=== PATIENT | male | born 1995 | race American Indian/Alaskan Native ===

== ENCOUNTER 2020-02-18 22:01 | Emergency (ER) | payer OTHER ==
[2020-02-18] MEDS ORDERED: Sodium Chloride 0.9% 1,000 ML IV ONE (22:34)
[2020-02-18] MEDS ORDERED: Ondansetron 4 MG/2 ML SDV IVPUSH ONE (22:34)
--- NOTE | 2020-02-18 22:40 | EDM.PDOC ---
ED HPI GENERAL MEDICAL PROBLEM - General Chief Complaint: Abdominal Pain Stated Complaint: CONSTANTLY THROWING UP SINCE FATHERS DAY PER PT Time Seen by Provider: 02/18/20 22:30 Source of Information: Reports: Patient History Limitations: Reports: No Limitations - History of Present Illness INITIAL COMMENTS - FREE TEXT/NARRATIVE: This 24 yo male patient reports to the ED with left upper abdominal pain. The patient reports he has not been able to eat due to nausea/vomiting. The patient reports he has been attempting to drink fluids. The patient reports he has not had a bowel movement for 2 days. The patient denies any difficulties urinating. The patient reports no medical history and no previous abdominal surgeries. Onset: Today Duration: Constant Location: Reports: Abdomen (LUQ) Quality: Reports: Ache, Sharp Severity: Severe Improves with: Reports: None Worsens with: Reports: None Context: Reports: Other Associated Symptoms: Reports: No Other Symptoms Left Upper Abdomen Pain Score (Numeric/FACES): 7 - Related Data Allergies Allergy/AdvReac Type Severity Reaction Status Date / Time No Known Allergies Allergy Verified 02/18/20 22:26 Home Meds: Home Meds . [No Known Home Meds] 02/18/20 [History] ED ROS GENERAL - Review of Systems Review Of Systems: Comprehensive ROS is negative, except as noted in HPI. ED EXAM, GI/ABD - Physical Exam Exam: See Below Exam Limited By: No Limitations General Appearance: Alert, WD/WN, Moderate Distress Eyes: Bilateral: Normal Appearance, EOMI Ears: Normal External Exam, Normal Canal, Hearing Grossly Normal, Normal TMs Nose: Normal Inspection, Normal Mucosa, No Blood Throat/Mouth: Normal Inspection, Normal Lips, Normal Teeth, Normal Gums, Normal Oropharynx, Normal Voice, No Airway Compromise Head: Atraumatic, Normocephalic Neck: Normal Inspection, Supple, Non-Tender, Full Range of Motion Respiratory/Chest: No Respiratory Distress, Lungs Clear, Normal Breath Sounds, No Accessory Muscle Use, Chest Non-Tender Cardiovascular: No Edema, No Gallop, No JVD, No Murmur, No Rub, Tachycardia GI/Abdominal Exam: Tender (LUQ) (Male) Exam: Deferred Rectal (Males) Exam: Deferred Back Exam: Normal Inspection, Full Range of Motion, NT Extremities: Normal Inspection, Normal Range of Motion, Non-Tender, Normal Capillary Refill, No Pedal Edema Neurological: Alert, Oriented, CN II-XII Intact, Normal Cognition, Normal Gait, Normal Reflexes, No Motor/Sensory Deficits Psychiatric: Normal Affect, Normal Mood Skin Exam: Warm, Dry, Intact, Normal Color, No Rash Lymphatic: No Adenopathy Course - Vital Signs Last Recorded V/S: Last Vital Signs Temp 36.3 C 02/18/20 22:05 Pulse 150 H 02/18/20 22:05 Resp 20 02/18/20 22:05 BP 141/82 H 02/18/20 22:05 Pulse Ox 97 02/18/20 22:05 - Orders/Labs/Meds Orders: Active Orders 24 hr Category Date Time Status EKG Documentation Completion [RC] STAT Care 02/18/20 22:18 Active CULTURE BLOOD [BC] Stat Lab 02/18/20 22:38 Received CULTURE BLOOD [BC] Stat Lab 02/18/20 23:20 Received DRUG SCREEN URINE BIORAD [URCHEM] Stat Lab 02/18/20 22:18 Ordered UA RFX MISHEL AND CULT IF INDIC [URIN] Urgent Lab 02/18/20 22:18 Ordered Lactated Ringers [Ringers, Lactated] 1,000 ml Med 02/19/20 00:30 Ordered IV ASDIRECTED Medication Orders Hydromorphone HCl (Dilaudid) 1 mg IVPUSH ONETIME ONE Stop: 02/19/20 00:28 Labs: Laboratory Tests 02/18/20 02/18/20 02/18/20 Range/Units 22:18 22:18 22:18 WBC 26.3 H* (5.0-10.0) 10^3/uL RBC 5.70 (4.6-6.2) 10^6/uL Hgb 17.8 (14.0-18.0) g/dL Hct 50.4 (40.0-54.0) % MCV 88.4 (80-100) fL MCH 31.2 (27.0-34.0) pg MCHC 35.3 H (33.0-35.0) g/dL Plt Count 238 (150-450) 10^3/uL Neut % (Auto) 87.0 H (42.2-75.2) % Lymph % (Auto) 3.7 L (20.5-50.1) % [place] % (Auto) 9.2 H (2-8) % Eos % (Auto) 0.0 L (1.0-3.0) % Baso % (Auto) 0.1 (0.0-1.0) % Add Manual Diff Yes Neutrophils % (Manual) 85 H (42-75) % Band Neutrophils % 3 % Lymphocytes % (Manual) 5 L (20-50) % Monocytes % (Manual) 7 (2-8) % Sodium 127 L (136-145) mmol/L Potassium 3.4 L (3.5-5.1) mmol/L Chloride 92 L (98-107) mmol/L Carbon Dioxide 26 (21-32) mmol/L Anion Gap 12.4 (7-13) mEq/L BUN 10 (7-18) mg/dL Creatinine 1.01 (0.70-1.30) mg/dL Est Cr Clr Drug Dosing 122.72 mL/min Estimated GFR (MDRD) > 60 BUN/Creatinine Ratio 9.9 (No establ ref range) Glucose 128 H (74-99) mg/dL Lactic Acid 1.8 (0.4-2.0) mmol/L Calcium 7.4 L (8.5-10.1) mg/dL Total Bilirubin 6.0 H (0.2-1.0) mg/dL AST 188 H (15-37) U/L ALT 526 H (16-63) U/L Alkaline Phosphatase 288 H (46-116) U/L Troponin I < 0.017 (0.000-0.056) ng/mL Total Protein 7.7 (6.4-8.2) g/dL Albumin 3.1 L (3.4-5.0) g/dL Globulin 4.6 Albumin/Globulin Ratio 0.67 Amylase (25-115) U/L Lipase (73-393) U/L Ethyl Alcohol < 3 (0) mg/dL /24/20 Range/Units 22:18 WBC (5.0-10.0) 10^3/uL RBC (4.6-6.2) 10^6/uL Hgb (14.0-18.0) g/dL Hct (40.0-54.0) % MCV (80-100) fL MCH (27.0-34.0) pg MCHC (33.0-35.0) g/dL Plt Count (150-450) 10^3/uL Neut % (Auto) (42.2-75.2) % Lymph % (Auto) (20.5-50.1) % [place] % (Auto) (2-8) % Eos % (Auto) (1.0-3.0) % Baso % (Auto) (0.0-1.0) % Add Manual Diff Neutrophils % (Manual) (42-75) % Band Neutrophils % % Lymphocytes % (Manual) (20-50) % Monocytes % (Manual) (2-8) % Sodium (136-145) mmol/L Potassium (3.5-5.1) mmol/L Chloride (98-107) mmol/L Carbon Dioxide (21-32) mmol/L Anion Gap (7-13) mEq/L BUN (7-18) mg/dL Creatinine (0.70-1.30) mg/dL Est Cr Clr Drug Dosing mL/min Estimated GFR (MDRD) BUN/Creatinine Ratio (No establ ref range) Glucose (74-99) mg/dL Lactic Acid (0.4-2.0) mmol/L Calcium (8.5-10.1) mg/dL Total Bilirubin (0.2-1.0) mg/dL AST (15-37) U/L ALT (16-63) U/L Alkaline Phosphatase (46-116) U/L Troponin I (0.000-0.056) ng/mL Total Protein (6.4-8.2) g/dL Albumin (3.4-5.0) g/dL Globulin Albumin/Globulin Ratio Amylase 367 H (25-115) U/L Lipase 1531 H (73-393) U/L Ethyl Alcohol (0) mg/dL Meds: Medications Generic Name Dose Route Start Last Admin Trade Name Freq PRN Reason Stop Dose Admin Hydromorphone HCl 1 mg 02/19/20 00:27 Dilaudid IVPUSH 02/19/20 00:28 ONETIME ONE Discontinued Medications Generic Name Dose Route Start Last Admin Trade Name Freq PRN Reason Stop Dose Admin Hydromorphone HCl 0.5 mg 02/18/20 23:26 02/18/20 23:33 Dilaudid IVPUSH 02/18/20 23:27 0.5 mg ONETIME ONE Administration Sodium Chloride 1,000 mls @ 999 mls/hr 02/18/20 22:34 02/18/20 22:44 Normal Saline IV 02/18/20 23:34 999 mls/hr .BOLUS ONE Administration Iopamidol 100 ml 02/18/20 23:06 02/18/20 23:35 Isovue-300 (61%) IVPUSH 02/18/20 23:07 100 ml ONETIME ONE Administration Ondansetron HCl 4 mg 02/18/20 22:34 02/18/20 22:45 Zofran IVPUSH 02/18/20 22:35 4 mg ONETIME ONE Administration Departure - Departure Time of Disposition: 00:28 Disposition: DC/Tfer to Acute Hospital 02 Condition: Serious Clinical Impression: Acute pancreatitis Qualifiers: Pancreatitis type: unspecified pancreatitis type Acute pancreatitis complication: infected necrosis Qualified Code(s): K85.92 - Acute pancreatitis with infected necrosis, unspecified - Discharge Information *PRESCRIPTION DRUG MONITORING PROGRAM REVIEWED*: Not Applicable *COPY OF PRESCRIPTION DRUG MONITORING REPORT IN PATIENT [facility]: Not Applicable Forms: Interfacility Transfer EMTALA Care Plan Goals: Discussed the patient's history, examination, lab and CT results with Dr. Baumann. Dr. Baumann accepted the patient for continued evaluation and further management. The patient will be transported by [facility]. Sepsis Event Note (ED) - Evaluation Sepsis Screening Result: Possible Sepsis Risk - Focused Exam Vital Signs: Vital Signs Temp Pulse Resp BP Pulse Ox 02/18/20 22:05 36.3 C 150 H 20 141/82 H 97 - My Orders Last 24 Hours: My Active Orders 02/18/20 22:18 EKG Documentation Completion [RC] STAT DRUG SCREEN URINE BIORAD [URCHEM] Stat UA RFX MISHEL AND CULT IF INDIC [URIN] Urgent 02/18/20 22:38 CULTURE BLOOD [BC] Stat 02/18/20 23:20 CULTURE BLOOD [BC] Stat 02/19/20 00:30 Lactated Ringers [Ringers, Lactated] 1,000 ml IV ASDIRECTED - Assessment/Plan Last 24 Hours: My Active Orders 02/18/20 22:18 EKG Documentation Completion [RC] STAT DRUG SCREEN URINE BIORAD [URCHEM] Stat UA RFX MISHEL AND CULT IF INDIC [URIN] Urgent 02/18/20 22:38 CULTURE BLOOD [BC] Stat 02/18/20 23:20 CULTURE BLOOD [BC] Stat 02/19/20 00:30 Lactated Ringers [Ringers, Lactated] 1,000 ml IV ASDIRECTED
[2020-02-18 22:44] LABS: ANION GAP 12.4 mEq/L (7-13); CHLORIDE,CL 92 mmol/L (98-107); SODIUM,NA 127 mmol/L (136-145)
[2020-02-18] MEDS ORDERED: Iopamidol 612 MG/ML 100 ML Bottle IVPUSH ONE (23:06)
[2020-02-18] MEDS ORDERED: HYDROmorphone 0.5 MG/0.5 ML Syringe IVPUSH ONE (23:26)
--- NOTE | 2020-02-19 00:10 | CT ---
PROCEDURE INFORMATION: Exam: CT Abdomen And Pelvis With Contrast Exam date and time: 02/18/2020 11:15 PM Age: 24 years old Clinical indication: Other: Luq abdominal pain (wbc 26.2); Additional info: Luq abdominal pain (wbc 26.2) TECHNIQUE: Imaging protocol: Computed tomography of the abdomen and pelvis with intravenous contrast. Radiation optimization: All CT scans at this facility use at least one of these dose optimization techniques: automated exposure control; mA and/or kV adjustment per patient size (includes targeted exams where dose is matched to clinical indication); or iterative reconstruction. Contrast material: ISOVUE 300; Contrast volume: 100 ml; Contrast route: INTRAVENOUS (IV); COMPARISON: No relevant prior studies available. FINDINGS: Liver: Diffuse fatty infiltration of the liver. Gallbladder and bile ducts: The gallbladder has an irregular contour, suggesting gallstones in the gallbladder lumen. Pancreas: Findings of acute pancreatitis. The pancreas is enlarged and edematous. There is surrounding inflammatory stranding tracking into the is right and left paracolic gutters. No focal drainable fluid collection is identified. There is segmental decreased enhancement in the body of the pancreas, suggesting developing necrosis. This area of decreased attenuation measures 3.7 x 3.6 cm. Spleen: Normal. No splenomegaly. Adrenals: Normal. No mass. Kidneys and ureters: Normal. No hydronephrosis. Stomach and bowel: Unremarkable. No obstruction. No mucosal thickening. Appendix: No evidence of appendicitis. Intraperitoneal space: Small amount of ascites layers in the dependent portion of the pelvis. Vasculature: The splenic vein is mildly attenuated but appears patent. Lymph nodes: Unremarkable. No enlarged lymph nodes. Bladder: Unremarkable as visualized. Reproductive: Unremarkable as visualized. Bones/joints: Unremarkable. No acute fracture. Soft tissues: Unremarkable. IMPRESSION: 1. Acute pancreatitis with peripancreatic inflammatory stranding and a small amount of ascites. 2. Decreased enhancement in the central body of the pancreas suggest developing necrosis. 3. Fatty infiltration of the liver. 4. The gallbladder is contracted and has a somewhat lobulated contour, suggesting gallstones in the gallbladder lumen. There are no findings of acute cholecystitis.
[2020-02-19] MEDS ORDERED: HYDROmorphone 1 MG/ML Syringe IVPUSH ONE (00:27)
[2020-02-19] MEDS ORDERED: Lactated Ringers 1,000 ML IV SCH (00:30)
== END 2020-02-19 01:00 ==
LOC: DL.ED 22:01
DX: K85.92 Acute pancreatitis with infected necrosis, unspecified (principal)
CPT/HCPCS: 36415; 74177; 80053; 80307; 82150; 83605; 83690; 84484; 85025; 87040; 93005; 96361; 96374; 96375; 96376; 99285; J1170; J2405; J7030; J7120; Q9967

== ENCOUNTER 2020-02-28 23:37 | Emergency (ER) | payer OTHER ==
[2020-02-29] MEDS ORDERED: Iopamidol 612 MG/ML 100 ML Bottle IVPUSH ONE (00:38)
[2020-02-29 01:23] LABS: ANION GAP 13.5 mEq/L (7-13); CHLORIDE,CL 99 mmol/L (98-107); SODIUM,NA 134 mmol/L (136-145)
--- NOTE | 2020-02-29 01:57 | CT ---
PROCEDURE INFORMATION: Exam: CT Abdomen And Pelvis With Contrast Exam date and time: 02/29/2020 12:56 AM Age: 24 years old Clinical indication: Other: Wbc 20,200; Prior surgery; Surgery date: 3-7 days post-operative; Surgery type: Gallbladder; Additional info: Abdominal pain, S/P gb surgery on 02/21/20 TECHNIQUE: Imaging protocol: Computed tomography of the abdomen and pelvis with intravenous contrast. Radiation optimization: All CT scans at this facility use at least one of these dose optimization techniques: automated exposure control; mA and/or kV adjustment per patient size (includes targeted exams where dose is matched to clinical indication); or iterative reconstruction. Contrast material: [id number]; Contrast volume: 100 ml; Contrast route: INTRAVENOUS (IV); COMPARISON: CT Abdomen Pelvis w Cont 02/18/2020 11:15 PM FINDINGS: Liver: Fatty liver changes. Gallbladder and bile ducts: Cholecystectomy. Plastic biliary stent in place. This is new since 02/18/2020. Minor pneumobilia Pancreas: Severe features of pancreatitis. There appears to be necrotizing change of the pancreatic parenchyma. There is moderate surrounding fluid at the pancreatic body and tail region. There is fluid extending into the splenic hilum and into the left upper quadrant. There is fluid tracking along the greater curvature of the stomach which appears to be partially walled off and may be a developing pseudocyst. This is seen on series 2, image 45. In comparison with a previous study from 02/18/2020, there is progression of the pancreatitis and the necrotizing change. Spleen: See "Pancreas" finding. Adrenals: Normal. No mass. Kidneys and ureters: Normal. No hydronephrosis. Stomach and bowel: No bowel obstruction or acute bowel edema evident. There is gastric edema which is likely secondary to the adjacent severe pancreatitis. This appears to represent secondary gastritis. Appendix: No evidence of appendicitis. Intraperitoneal space: Small amount of free fluid in the pelvis. Vasculature: Unremarkable. No abdominal aortic aneurysm. Lymph nodes: Unremarkable. No enlarged lymph nodes. Bladder: Unremarkable as visualized. Reproductive: Unremarkable as visualized. Bones/joints: Unremarkable. No acute fracture. Soft tissues: Unremarkable. IMPRESSION: 1. Interval cholecystectomy since 02/18/2020 and insertion of a plastic biliary stent. 2. Progressive necrotizing pancreatitis features. 3. Appearance suggesting early development of a pseudocyst along the greater curvature of the stomach. 4. Progressive fatty inflammation in the left extraperitoneal posterior region behind the left kidney and left colic gutter. 5. Small volume free fluid in the pelvis. 6. Fatty liver changes. 7. Gastric edema which is likely secondary gastritis related to the adjacent pancreatitis.
[2020-02-29] MEDS ORDERED: fentaNYL 100 MCG/2 ML SDV IVPUSH ONE (02:23)
[2020-02-29] MEDS ORDERED: Sodium Chloride 0.9% 1,000 ML IV ONE (02:23)
[2020-02-29] MEDS ORDERED: Ondansetron 4 MG/2 ML SDV IVPUSH ONE (02:23)
--- NOTE | 2020-02-29 02:28 | EDM.PDOC ---
ED HPI GENERAL MEDICAL PROBLEM - General Chief Complaint: Gastrointestinal Problem Stated Complaint: GOLLBLADDER OUT, NOW PANCREAS HURTS PER PT Time Seen by Provider: 02/29/20 00:20 Source of Information: Reports: Patient History Limitations: Reports: No Limitations - History of Present Illness INITIAL COMMENTS - FREE TEXT/NARRATIVE: GB surgery sunday, increasing pain since yesterday. normal BM Pain greater epigastric. Hx pancreatitis. No vomiting. No fever. Tylenol this ning for pain but not helping. Treatments POTATO PEELER: Reports: Acetaminophen Left Upper Abdomen Pain Score (Numeric/FACES): 8 - Related Data Allergies Allergy/AdvReac Type Severity Reaction Status Date / Time No Known Allergies Allergy Verified 02/29/20 00:15 Home Meds: Home Meds Ciprofloxacin [Cipro XR 500 MG Tablet] 500 mg PO BID 02/29/20 [History] Metoprolol Tartrate [Lopressor] 25 mg PO BID 02/29/20 [History] amLODIPine [Norvasc] 5 mg PO DAILY 02/29/20 [History] metroNIDAZOLE [Metronidazole] 500 mg PO TID 02/29/20 [History] Past Medical History - Past Health History Medical/Surgical History: Denies Medical/Surgical History Gastrointestinal History: Reports: Other (See Below) Other Gastrointestinal History: necrotic gallbladder Musculoskeletal History: Reports: Other (See Below) Other Musculoskeletal History: dislocated left elbow - Past Surgical History GI Surgical History: Reports: Cholecystectomy Social & Family History - Family History Family Medical History: Noncontributory - Tobacco Use Smoking Status *Q: Never Smoker Second Hand Smoke Exposure: No - Caffeine Use Caffeine Use: Reports: None - Recreational Drug Use Recreational Drug Use: No ED ROS GENERAL - Review of Systems Review Of Systems: Comprehensive ROS is negative, except as noted in HPI. ED EXAM, GI/ABD - Physical Exam Exam: See Below Exam Limited By: No Limitations General Appearance: Alert, Mild Distress Eyes: Bilateral: Normal Appearance Ears: Normal External Exam, Hearing Grossly Normal Nose: Normal Inspection Throat/Mouth: Normal Inspection Head: Atraumatic, Normocephalic Neck: Normal Inspection Respiratory/Chest: No Respiratory Distress, Lungs Clear, Normal Breath Sounds Cardiovascular: Normal Peripheral Pulses, Regular Rate, Rhythm GI/Abdominal Exam: Soft, Tender, Abnormal Bowel Sounds (decreased), Other (surgicical lap ) Course - Vital Signs Last Recorded V/S: Last Vital Signs Temp 98.5 F 02/29/20 00:19 Pulse 117 H 02/29/20 00:19 Resp 16 02/29/20 00:19 BP 126/87 02/29/20 00:19 Pulse Ox 100 02/29/20 00:19 - Orders/Labs/Meds Labs: Laboratory Tests 02/29/20 02/29/20 02/29/20 Range/Units 00:43 00:43 00:43 WBC 20.2 H (5.0-10.0) 10^3/uL RBC 4.58 L (4.6-6.2) 10^6/uL Hgb 14.3 D (14.0-18.0) g/dL Hct 42.9 (40.0-54.0) % MCV 93.7 D (80-100) fL MCH 31.2 (27.0-34.0) pg MCHC 33.3 (33.0-35.0) g/dL Plt Count 785 H D (150-450) 10^3/uL Neut % (Auto) 87.5 H (42.2-75.2) % Lymph % (Auto) 5.1 L (20.5-50.1) % [place] % (Auto) 6.6 (2-8) % Eos % (Auto) 0.6 L (1.0-3.0) % Baso % (Auto) 0.2 (0.0-1.0) % Add Manual Diff Yes Neutrophils % (Manual) 80 H (42-75) % Band Neutrophils % 11 % Lymphocytes % (Manual) 5 L (20-50) % Monocytes % (Manual) 4 (2-8) % Platelet Estimate Marked inc Sodium 134 L (136-145) mmol/L Potassium 3.5 (3.5-5.1) mmol/L Chloride 99 (98-107) mmol/L Carbon Dioxide 25 (21-32) mmol/L Anion Gap 13.5 H (7-13) mEq/L BUN 6 L (7-18) mg/dL Creatinine 0.85 (0.70-1.30) mg/dL Est Cr Clr Drug Dosing 145.82 mL/min Estimated GFR (MDRD) > 60 BUN/Creatinine Ratio 7.1 (No establ ref range) Glucose 110 H (74-99) mg/dL Lactic Acid 1.0 (0.4-2.0) mmol/L Calcium 8.5 (8.5-10.1) mg/dL Total Bilirubin 0.7 (0.2-1.0) mg/dL AST 19 (15-37) U/L ALT 26 (16-63) U/L Alkaline Phosphatase 118 H (46-116) U/L Total Protein 7.9 (6.4-8.2) g/dL Albumin 2.6 L (3.4-5.0) g/dL Globulin 5.3 Albumin/Globulin Ratio 0.49 Amylase 55 (25-115) U/L Lipase 234 (73-393) U/L Meds: Medications Discontinued Medications Generic Name Dose Route Start Last Admin Trade Name Freq PRN Reason Stop Dose Admin Fentanyl 50 mcg 02/29/20 02:23 02/29/20 02:45 Sublimaze IVPUSH 02/29/20 02:24 50 mcg ONETIME ONE Administration Sodium Chloride 1,000 mls @ 200 mls/hr 02/29/20 02:23 02/29/20 02:46 Normal Saline IV 02/29/20 07:22 200 mls/hr .BOLUS ONE Administration Iopamidol 100 ml 02/29/20 00:38 02/29/20 00:56 Isovue-300 (61%) IVPUSH 02/29/20 00:39 100 ml ONETIME ONE Administration Ondansetron HCl 4 mg 02/29/20 02:23 02/29/20 02:42 Zofran IVPUSH 02/29/20 02:24 4 mg ONETIME ONE Administration - Re-Assessments/Exams Free Text/Narrative Re-Assessment/Exam: TC consult Dr Corona [facility], Recommend patient process through ED. Antibiotic not indicated prior to transfer per Dr Corona. . Dr Lan accepting of patient. Tx via [facility]. 03/01/20 13:02 Departure - Departure Time of Disposition: 03:10 Disposition: DC/Tfer to Acute Hospital 02 Condition: Fair, Undetermined Clinical Impression: Abdominal pain, Pancreatitis, S/P cholecystectomy - Discharge Information Forms: ED Department Discharge Sepsis Event Note (ED) - Evaluation Sepsis Screening Result: No Definite Risk
== END 2020-02-29 03:09 ==
LOC: DL.ED 23:37
DX: K85.90 Acute pancreatitis without necrosis or infection, unspecified (principal); Z90.49 Acquired absence of other specified parts of digestive tract; Z79.899 Other long term (current) drug therapy
CPT/HCPCS: 36415; 74177; 80053; 82150; 83605; 83690; 85025; 87040; 96374; 96375; 99285; J2405; J3010; J7030; Q9967

== ENCOUNTER 2020-04-04 09:54 | Emergency (ER) | payer MEDICAID, OTHER ==
[2020-04-04] MEDS ORDERED: Sodium Chloride 0.9% 10 ML Syringe FLUSH PRN (10:07)
[2020-04-04] MEDS ORDERED: Sodium Chloride 0.9% 1,000 ML IV ONE (10:08)
[2020-04-04] MEDS ORDERED: Ondansetron 4 MG/2 ML SDV IV ONE ×2 (10:08→11:12)
[2020-04-04] MEDS ORDERED: HYDROmorphone 1 MG/ML Syringe IVPUSH ONE ×2 (10:09→11:12)
[2020-04-04 10:51] LABS: ANION GAP 17.5 mEq/L (7-13); CHLORIDE,CL 98 mmol/L (98-107); SODIUM,NA 136 mmol/L (136-145)
--- NOTE | 2020-04-04 11:23 | EDM.PDOC ---
Scribed by Fara Araujo 04/04/20 1014 for Ari Reyes MD ED HPI GENERAL MEDICAL PROBLEM - General Chief Complaint: Abdominal Pain Stated Complaint: ABD PAIN Time Seen by Provider: 04/04/20 10:02 Source of Information: Reports: Patient, RN, RN Notes Reviewed History Limitations: Reports: No Limitations - History of Present Illness INITIAL COMMENTS - FREE TEXT/NARRATIVE: Patient presents to ED by POV stating that he was discharged from [facility] last Sunday with acute pancreatitis with a pancreatic cyst. He has an appointment tomorrow. He ran out of his pain medications. Onset: Gradual Duration: Getting Worse Location: Reports: Abdomen Quality: Reports: Ache Severity: Severe Improves with: Reports: None Worsens with: Reports: None Associated Symptoms: Reports: No Other Symptoms Left Upper Abdomen Pain Score (Numeric/FACES): 8 - Related Data Allergies Allergy/AdvReac Type Severity Reaction Status Date / Time No Known Allergies Allergy Verified 04/04/20 10:00 Home Meds: Home Meds Metoprolol Tartrate [Lopressor] 25 mg PO BID 02/29/20 [History] amLODIPine [Norvasc] 5 mg PO DAILY 02/29/20 [History] metroNIDAZOLE [Metronidazole] 500 mg PO TID 02/29/20 [History] Potassium Chloride [K-Tab ER] 10 meq PO DAILY 04/04/20 [History] Past Medical History - Past Health History Medical/Surgical History: Denies Medical/Surgical History Gastrointestinal History: Reports: Other (See Below) Other Gastrointestinal History: necrotic gallbladder Musculoskeletal History: Reports: Other (See Below) Other Musculoskeletal History: dislocated left elbow - Past Surgical History GI Surgical History: Reports: Cholecystectomy Social & Family History - Family History Family Medical History: Noncontributory - Caffeine Use Caffeine Use: Reports: None ED ROS GENERAL - Review of Systems Review Of Systems: Comprehensive ROS is negative, except as noted in HPI. ED EXAM, GI/ABD - Physical Exam Exam: See Below Exam Limited By: No Limitations General Appearance: Alert, No Apparent Distress, Other (Uncomfortable but non- toxic appearing) Eyes: Bilateral: Normal Appearance (No scleral icterus) Throat/Mouth: Normal Inspection, Normal Voice, No Airway Compromise Head: Atraumatic, Normocephalic Neck: Normal Inspection Cardiovascular: Normal Peripheral Pulses, Regular Rate, Rhythm, No Edema, No Gallop, No JVD, No Murmur, No Rub GI/Abdominal Exam: Normal Bowel Sounds, Soft, No Organomegaly, No Distention, No Abnormal Bruit, Tender (Episgastric tenderness to palpation). No: Guarding, Rigid, Rebound Back Exam: Normal Inspection Extremities: Normal Range of Motion, Non-Tender, No Pedal Edema, Other (Extensive needle tracts at B/L upper extremities). No: Joint Swelling Neurological: Alert, Oriented, CN II-XII Intact, Normal Cognition, Normal Gait, No Motor/Sensory Deficits Psychiatric: Normal Mood Skin Exam: Warm, Dry, Intact, Normal Color, No Rash Course - Vital Signs Last Recorded V/S: Last Vital Signs Temp 96.8 F L 04/04/20 09:57 Pulse 136 H 04/04/20 09:57 Resp 20 04/04/20 09:57 BP 148/96 H 04/04/20 09:57 Pulse Ox 98 04/04/20 09:57 - Orders/Labs/Meds Orders: Active Orders 24 hr Category Date Time Status Peripheral IV Care [RC] . DIRECTED Care 04/04/20 10:08 Active Sodium Chloride 0.9% [Saline Flush] Med 04/04/20 10:07 Active 10 ml FLUSH ASDIRECTED PRN Peripheral IV Insertion Adult [OM.PC] Stat Oth 04/04/20 10:07 Ordered Medication Orders Sodium Chloride (Saline Flush) 10 ml FLUSH ASDIRECTED PRN PRN Reason: Keep Vein Open Last Admin: 04/04/20 10:25 Dose: 10 ml Documented by: HAYDEE Labs: Laboratory Tests 04/04/20 04/04/20 04/04/20 Range/Units 10:17 10:17 10:49 WBC 9.6 (5.0-10.0) 10^3/uL RBC 4.51 L (4.6-6.2) 10^6/uL Hgb 12.9 L (14.0-18.0) g/dL Hct 39.2 L (40.0-54.0) % MCV 86.9 D (80-100) fL MCH 28.6 (27.0-34.0) pg MCHC 32.9 L (33.0-35.0) g/dL Plt Count 641 H D (150-450) 10^3/uL Neut % (Auto) 75.7 H (42.2-75.2) % Lymph % (Auto) 10.6 L (20.5-50.1) % [place] % (Auto) 9.0 H (2-8) % Eos % (Auto) 4.4 H (1.0-3.0) % Baso % (Auto) 0.3 (0.0-1.0) % Sodium 136 (136-145) mmol/L Potassium 3.5 (3.5-5.1) mmol/L Chloride 98 (98-107) mmol/L Carbon Dioxide 24 (21-32) mmol/L Anion Gap 17.5 H (7-13) mEq/L BUN 8 (7-18) mg/dL Creatinine 0.71 (0.70-1.30) mg/dL Est Cr Clr Drug Dosing 174.57 mL/min Estimated GFR (MDRD) > 60 BUN/Creatinine Ratio 11.3 (No establ ref range) Glucose 98 (74-99) mg/dL Calcium 8.5 (8.5-10.1) mg/dL Total Bilirubin 0.9 (0.2-1.0) mg/dL AST 12 L (15-37) U/L ALT 12 L (16-63) U/L Alkaline Phosphatase 100 (46-116) U/L Total Protein 8.8 H (6.4-8.2) g/dL Albumin 2.8 L (3.4-5.0) g/dL Globulin 6.0 Albumin/Globulin Ratio 0.47 Amylase 217 H (25-115) U/L Lipase 387 (73-393) U/L Urine Color Lizzie (YELLOW) Urine Appearance Slightly cloudy (CLEAR) Urine pH 6.5 (5.0-9.0) Ur Specific [place] 1.025 (1.005-1.030) Urine Protein 100 H (NEGATIVE) Urine Glucose (UA) Negative (NEGATIVE) Urine Ketones >=160 H (NEGATIVE) Urine Occult Blood Negative (NEGATIVE) Urine Nitrite Negative (NEGATIVE) Urine Bilirubin Large H (NEGATIVE) Urine Urobilinogen 2.0 H (0.2-1.0) mg/dL Ur Leukocyte Esterase Negative (NEGATIVE) Urine RBC 0-5 /HPF Urine WBC 5-10 H (0-5/HPF) /HPF Ur Epithelial Cells Rare (NOT SEEN) /HPF Urine Bacteria Few (0-FEW/HPF) /HPF Urine Mucus Many H (NOT SEEN) /LPF Urine Opiates Screen (NEGATIVE) Ur Oxycodone Screen (NEGATIVE) Urine Methadone Screen (NEGATIVE) Ur Barbiturates Screen (NEGATIVE) U Tricyclic Antidepress (NEGATIVE) Ur Phencyclidine Scrn (NEGATIVE) Ur Amphetamine Screen (NEGATIVE) U Methamphetamines Scrn (NEGATIVE) Urine MDMA Screen (NEGATIVE) U Benzodiazepines Scrn (NEGATIVE) Urine Cocaine Screen (NEGATIVE) U Marijuana (THC) Screen (NEGATIVE) Ethyl Alcohol < 3 (0) mg/dL 04/04/20 Range/Units 10:49 WBC (5.0-10.0) 10^3/uL RBC (4.6-6.2) 10^6/uL Hgb (14.0-18.0) g/dL Hct (40.0-54.0) % MCV (80-100) fL MCH (27.0-34.0) pg MCHC (33.0-35.0) g/dL Plt Count (150-450) 10^3/uL Neut % (Auto) (42.2-75.2) % Lymph % (Auto) (20.5-50.1) % [place] % (Auto) (2-8) % Eos % (Auto) (1.0-3.0) % Baso % (Auto) (0.0-1.0) % Sodium (136-145) mmol/L Potassium (3.5-5.1) mmol/L Chloride (98-107) mmol/L Carbon Dioxide (21-32) mmol/L Anion Gap (7-13) mEq/L BUN (7-18) mg/dL Creatinine (0.70-1.30) mg/dL Est Cr Clr Drug Dosing mL/min Estimated GFR (MDRD) BUN/Creatinine Ratio (No establ ref range) Glucose (74-99) mg/dL Calcium (8.5-10.1) mg/dL Total Bilirubin (0.2-1.0) mg/dL AST (15-37) U/L ALT (16-63) U/L Alkaline Phosphatase (46-116) U/L Total Protein (6.4-8.2) g/dL Albumin (3.4-5.0) g/dL Globulin Albumin/Globulin Ratio Amylase (25-115) U/L Lipase (73-393) U/L Urine Color (YELLOW) Urine Appearance (CLEAR) Urine pH (5.0-9.0) Ur Specific [place] (1.005-1.030) Urine Protein (NEGATIVE) Urine Glucose (UA) (NEGATIVE) Urine Ketones (NEGATIVE) Urine Occult Blood (NEGATIVE) Urine Nitrite (NEGATIVE) Urine Bilirubin (NEGATIVE) Urine Urobilinogen (0.2-1.0) mg/dL Ur Leukocyte Esterase (NEGATIVE) Urine RBC /HPF Urine WBC (0-5/HPF) /HPF Ur Epithelial Cells (NOT SEEN) /HPF Urine Bacteria (0-FEW/HPF) /HPF Urine Mucus (NOT SEEN) /LPF Urine Opiates Screen Negative (NEGATIVE) Ur Oxycodone Screen Negative (NEGATIVE) Urine Methadone Screen Negative (NEGATIVE) Ur Barbiturates Screen Negative (NEGATIVE) U Tricyclic Antidepress Negative (NEGATIVE) Ur Phencyclidine Scrn Negative (NEGATIVE) Ur Amphetamine Screen Negative (NEGATIVE) U Methamphetamines Scrn Negative (NEGATIVE) Urine MDMA Screen Negative (NEGATIVE) U Benzodiazepines Scrn Negative (NEGATIVE) Urine Cocaine Screen Negative (NEGATIVE) U Marijuana (THC) Screen Positive H (NEGATIVE) Ethyl Alcohol (0) mg/dL Meds: Medications Generic Name Dose Route Start Last Admin Trade Name Freq PRN Reason Stop Dose Admin Sodium Chloride 10 ml 04/04/20 10:07 04/04/20 10:25 Saline Flush FLUSH 10 ml ASDIRECTED PRN Administration Keep Vein Open Discontinued Medications Generic Name Dose Route Start Last Admin Trade Name Freq PRN Reason Stop Dose Admin Hydromorphone HCl 1 mg 04/04/20 10:04/04/20 10:32 Dilaudid IVPUSH 04/04/20 10:10 1 mg ONETIME ONE Administration Hydromorphone HCl 1 mg 04/04/20 11:12 Dilaudid IVPUSH 04/04/20 11:13 ONETIME ONE Sodium Chloride 1,000 mls @ 999 mls/hr 04/04/20 10:08 04/04/20 10:28 Normal Saline IV 04/04/20 11:08 999 mls/hr .BOLUS ONE Administration Ondansetron HCl 4 mg 04/04/20 10:08 04/04/20 10:29 Zofran IV 04/04/20 10:09 4 mg ONETIME ONE Administration Ondansetron HCl 4 mg 04/04/20 11:12 Zofran IV 04/04/20 11:13 ONETIME ONE Departure - Departure Time of Disposition: 11:19 Disposition: Home, Self-Care 01 Condition: Good Clinical Impression: Epigastric abdominal pain, Pancreatic pseudocyst/cyst - Discharge Information *PRESCRIPTION DRUG MONITORING PROGRAM REVIEWED*: No *COPY OF PRESCRIPTION DRUG MONITORING REPORT IN PATIENT NOVA: No Instructions: Pancreatitis Eating Plan, Chronic Pancreatitis Forms: ED Department Discharge Additional Instructions: Rx: Oxycodone 10mg Rx: Promethazine 25mg *Do not drive while under the influence of either of these medications. Follow up in clinic tomorrow as planned. Discuss a pain management plan with your clinic doctor, as pain medication cannot be obtained from the emergency department for ongoing medical conditions. Sepsis Event Note (ED) - Focused Exam Vital Signs: Vital Signs Temp Pulse Resp BP Pulse Ox 04/04/20 09:57 96.8 F L 136 H 20 148/96 H 98 - My Orders Last 24 Hours: My Active Orders 04/04/20 10:07 Sodium Chloride 0.9% [Saline Flush] 10 ml FLUSH ASDIRECTED PRN Peripheral IV Insertion Adult [OM.PC] Stat 04/04/20 10:08 Peripheral IV Care [RC] . DIRECTED - Assessment/Plan Last 24 Hours: My Active Orders 04/04/20 10:07 Sodium Chloride 0.9% [Saline Flush] 10 ml FLUSH ASDIRECTED PRN Peripheral IV Insertion Adult [OM.PC] Stat 04/04/20 10:08 Peripheral IV Care [RC] . DIRECTED I have read and agree with the documentation that has been completed regarding this visit. By signing this record, I attest that the documentation was completed in my physical presence and is an accurate record of the encounter.
== END 2020-04-04 11:36 | disposition home or self-care (01) ==
LOC: DL.ED 09:54
DX: K86.3 Pseudocyst of pancreas (principal); Z79.899 Other long term (current) drug therapy
CPT/HCPCS: 36415; 80053; 80305; 80307; 81001; 82150; 83690; 85025; 96374; 96375; 96376; 99284; J1170; J2405; J7030

== ENCOUNTER 2022-08-04 19:50 | Emergency (ER) | payer OTHER | END 2022-08-04 22:05 | disposition home or self-care (01) | LOC: DL.ED 19:50 | DX: M25.561 Pain in right knee (principal); M25.562 Pain in left knee; I10 Essential (primary) hypertension | CPT/HCPCS: 99283 ==

== ENCOUNTER 2022-08-13 12:28 | Emergency (ER) | payer OTHER ==
[2022-08-13 16:21] LABS: ANION GAP 16.9 mEq/L (7-13); CHLORIDE,CL 99 mmol/L (98-107); SODIUM,NA 134 mmol/L (136-145)
[2022-08-13 16:24] LABS: ACETAMINOPHEN 0 ug/mL (10-30 (Therapeutic)); ESTIMATED GFR 130 mL/min (>=60)
[2022-08-13] MEDS ORDERED: Sodium Chloride 0.9% 1,000 ML IV ONE (16:50)
[2022-08-13] MEDS ORDERED: Ketorolac 30 MG/ML SDV IVPUSH ONE (16:50)
[2022-08-13] MEDS ORDERED: methylPREDNISolone Sodium Succinate 125 MG/2 ML SDV IVPUSH ONE (17:00)
[2022-08-13 17:41] LABS: CORONAVIRUS COVID-19 NAA NEGATIVE (NEGATIVE); RESPIRATORY SYNCYTIAL VIR NAA NEGATIVE (NEGATIVE)
[2022-08-13] MEDS ORDERED: Ondansetron 4 MG/2 ML SDV IVPUSH ONE (17:50)
== END 2022-08-13 18:15 | disposition home or self-care (01) ==
LOC: DL.ED 12:28
DX: M62.81 Muscle weakness (generalized) (principal); I10 Essential (primary) hypertension; Z90.49 Acquired absence of other specified parts of digestive tract; Z20.822 Contact with and (suspected) exposure to COVID-19
CPT/HCPCS: 0241U; 36415; 80053; 80143; 80179; 80307; 82140; 82150; 83605; 83690; 83735; 84145; 84443; 84550; 85025; 85379; 85610; 85651; 86140; 86308; 87040; 96361; 96374; 96375; 99285; J1885; J2405; J2930; J7030

== ENCOUNTER 2025-03-17 15:41 | Emergency (ER) | payer SELFPAY ==
[2025-03-17] MEDS: Ketorolac 30 MG/ML SDV IM ONE (17:05)
[2025-03-17] MEDS: Acetaminophen/oxyCODONE 325-5 MG Tab PO ONE (17:50)
== END 2025-03-17 18:03 | disposition home or self-care (01) ==
LOC: DL.ED 15:41
DX: S82.141A Displaced bicondylar fracture of right tibia, initial encounter for closed fracture (principal); I10 Essential (primary) hypertension; X58.XXXA Exposure to other specified factors, initial encounter
CPT/HCPCS: 73590; 73700; 96372; 99283; 99284; A9270; J1885

== ENCOUNTER 2025-06-17 20:21 | Emergency (ER) | payer SELFPAY | END 2025-06-17 20:33 | disposition home or self-care (01) | LOC: DL.ED 20:21 | DX: Z02.89 Encounter for other administrative examinations (principal); I10 Essential (primary) hypertension; Z90.49 Acquired absence of other specified parts of digestive tract | CPT/HCPCS: 99282; 99283 ==